=== PATIENT | male | born 1930 | race Asian ===

== ENCOUNTER 2017-08-23 11:15 | Inpatient (IN) | payer OTHER, MEDICAID ==
[~2017-08-23] VITALS: Ht 160 cm; Wt 68.2 kg
[2017-08-23 11:19] VITALS: Ht 160 cm; Wt 68.2 kg
[2017-08-23 11:41] LABS: BASOPHIL % 0.5 % (0-2); PLATELET COUNT 213 x10^3mcL (130-400); RED CELL DISTRIBUTION WIDTH 13.3 % (11.5-14.5)
[2017-08-23 11:51] LABS: CALCIUM 9.1 mg/dL (8.5-10.1); CARBON DIOXIDE 26.6 mmol/L (21-32); CHLORIDE SERUM 100 mmol/L (98-107); CREATININE SERUM 1.2 mg/dL (0.7-1.3); GLUCOSE SERUM 154 mg/dL (74-106); POTASSIUM SERUM 4.5 mmol/L (3.5-5.1); SODIUM SERUM 135 mmol/L (136-145)
[2017-08-23 12:02] LABS: T3 TOTAL 0.86 ng/mL
[2017-08-23 12:31] LABS: FREE T4 1.04 ng/dL (0.76-1.46); FREE THYROXINE INDEX 1.6 ug/dL (1.4-4.5); T4(THYROXINE) 4.8 ug/dL (4.7-13.3)
[2017-08-23 12:36] LABS: ALBUMIN 3.9 g/dL (3.4-5.0); ALKALINE PHOSPHATASE 52 U/L (46-116); ALT/SGPT 42 U/L (16-63); AST/SGOT 31 U/L (15-37); BILIRUBIN TOTAL 0.77 mg/dL (0.20-1.00); CHOLESTEROL 139 mg/dL (<200); CHOLESTEROL/HDL RATIO 2.5; HDL CHOLESTEROL 56 mg/dL (40-60); LIPASE 59 IU/L (73-393); TOTAL PROTEIN, SERUM 7.9 g/dL (6.4-8.2); TRIGLYCERIDES 60 mg/dL (<150)
[2017-08-23] MEDS ORDERED: LOSARTAN POTASS50 M1 PO (13:07)
[2017-08-23] MEDS ORDERED: DOXAZOSIN MESYLA8 MG PO (13:08)
[2017-08-23] MEDS ORDERED: CLOPIDOGREL75 M1 PO (13:08)
[2017-08-23] MEDS ORDERED: FINASTERIDE5 M1 PO (13:08)
[2017-08-23] MEDS ORDERED: PRAVASTATIN SOD20 M1 PO (13:08)
[2017-08-23] MEDS ORDERED: VENTOLIN H0.09 MG/A1 (13:09)
[2017-08-23] MEDS ORDERED: CELECOXIB200 MG PO (13:09)
[2017-08-23] MEDS ORDERED: ALLOPURINOL100 MG PO (13:09)
[2017-08-23] MEDS ORDERED: AZELASTINE HYDRO6 ML (13:10)
[2017-08-23 13:53] VITALS: BP 171/91
[2017-08-23 14:16] LABS: PHOSPHOROUS 4.2 mg/dL (2.5-4.9)
[2017-08-23 16:40] LABS: microscopic required? NO
[2017-08-23 16:55] LABS: UA SPECIFIC GRAVITY <=1.005 (1.005-1.035); urine erythrocyte NEGATIVE (NEGATIVE)
[2017-08-23 17:22] VITALS: BP 141/78
[2017-08-23 21:15] VITALS: BP 150/75
[2017-08-24 05:51] VITALS: BP 142/79
[2017-08-24 06:45] LABS: BASOPHIL % 0.3 % (0-2); PLATELET COUNT 214 x10^3mcL (130-400); RED CELL DISTRIBUTION WIDTH 13.2 % (11.5-14.5)
[2017-08-24 06:49] LABS: CALCIUM 8.6 mg/dL (8.5-10.1); CHLORIDE SERUM 106 mmol/L (98-107); CREATININE SERUM 0.9 mg/dL (0.7-1.3); GLUCOSE SERUM 93 mg/dL (74-106); SODIUM SERUM 137 mmol/L (136-145)
[2017-08-24 08:52] VITALS: BP 127/73
[2017-08-24 14:18] VITALS: BP 149/72
[2017-08-24 18:00] VITALS: BP 175/82
[2017-08-24 19:39] VITALS: BP 153/79
[2017-08-25 04:48] VITALS: BP 149/78
[2017-08-25 06:33] LABS: CALCIUM 8.5 mg/dL (8.5-10.1); CARBON DIOXIDE 24.2 mmol/L (21-32); CHLORIDE SERUM 106 mmol/L (98-107); CREATININE SERUM 0.9 mg/dL (0.7-1.3); GLUCOSE SERUM 89 mg/dL (74-106); POTASSIUM SERUM 4.2 mmol/L (3.5-5.1); SODIUM SERUM 138 mmol/L (136-145)
[2017-08-25 06:36] LABS: BASOPHIL % 0.6 % (0-2); PLATELET COUNT 203 x10^3mcL (130-400); RED CELL DISTRIBUTION WIDTH 13.1 % (11.5-14.5)
[2017-08-25 09:33] VITALS: BP 152/78
[2017-08-25 11:37] VITALS: BP 152/78
== END 2017-08-25 12:25 | disposition home or self-care (01) | DRG 68 ==
LOC: ED 11:15 → DU 13:05
PROVIDERS: Family Medicine; Family Medicine Sports Medicine; Specialist
DX: I65.23 Occlusion and stenosis of bilateral carotid arteries (principal); I16.0 Hypertensive urgency; R55 Syncope and collapse; E86.0 Dehydration; E11.51 Type 2 diabetes mellitus with diabetic peripheral angiopathy without gangrene; N40.0 Benign prostatic hyperplasia without lower urinary tract symptoms; M10.9 Gout, unspecified; E78.5 Hyperlipidemia, unspecified; E03.9 Hypothyroidism, unspecified; Z79.02 Long term (current) use of antithrombotics/antiplatelets; Z68.29 Body mass index [BMI] 29.0-29.9, adult
CPT/HCPCS: 83880; 84439; 97535-GP; J7030; Q0092

== ENCOUNTER 2018-04-02 10:14 | Inpatient (IN) | payer OTHER, MEDICAID ==
[~2018-04-02] VITALS: Ht 167.6 cm; Wt 65.8 kg
[~2018-04-02 10:14] MED LIST: ALLOPURINOL100 MG PO; AZELASTINE HYDRO6 ML; CELECOXIB200 MG PO; CLOPIDOGREL75 M1 PO; DOXAZOSIN MESYLA8 MG PO; FINASTERIDE5 M1 PO; LOSARTAN POTASS50 M1 PO; PRAVASTATIN SOD20 M1 PO; VENTOLIN H0.09 MG/A1
[2018-04-02 10:26] VITALS: Ht 167.6 cm; Wt 65.8 kg
[2018-04-02 10:44] LABS: BASOPHIL % 0.5 % (0-2); PLATELET COUNT 228 x10^3mcL (130-400); RED CELL DISTRIBUTION WIDTH 13.8 % (11.5-14.5)
[2018-04-02 10:57] LABS: CALCIUM 9.2 mg/dL (8.5-10.1); CARBON DIOXIDE 26.6 mmol/L (21-32); CHLORIDE SERUM 99 mmol/L (98-107); CREATININE SERUM 1.1 mg/dL (0.7-1.3); GLUCOSE SERUM 138 mg/dL (74-106); POTASSIUM SERUM 4.4 mmol/L (3.5-5.1); SODIUM SERUM 134 mmol/L (136-145)
[2018-04-02 11:01] LABS: ALBUMIN 3.7 g/dL (3.4-5.0); ALKALINE PHOSPHATASE 51 U/L (46-116); ALT/SGPT 32 U/L (16-63); AST/SGOT 31 U/L (15-37); BILIRUBIN TOTAL 0.77 mg/dL (0.20-1.00); TOTAL PROTEIN, SERUM 8.1 g/dL (6.4-8.2)
[2018-04-02 13:24] LABS: microscopic required? NO
[2018-04-02 13:31] LABS: urine erythrocyte NEGATIVE (NEGATIVE)
[2018-04-02 13:47] LABS: MAGNESIUM 1.9 mg/dL (1.8-2.4); PHOSPHOROUS 3.9 mg/dL (2.5-4.9)
[2018-04-02 13:55] LABS: T3 TOTAL 1.03 ng/mL
[2018-04-02 13:58] VITALS: BP 177/88
[2018-04-02 14:03] LABS: FREE T4 1.06 ng/dL (0.76-1.46); T4(THYROXINE) 5.5 ug/dL (4.7-13.3)
[2018-04-02 17:04] VITALS: BP 130/77
[2018-04-02 21:16] VITALS: BP 148/83
[2018-04-03 04:49] VITALS: BP 123/60
[2018-04-03 06:09] LABS: BASOPHIL % 0.5 % (0-2); PLATELET COUNT 230 x10^3mcL (130-400); RED CELL DISTRIBUTION WIDTH 13.6 % (11.5-14.5)
[2018-04-03 06:15] LABS: CALCIUM 8.9 mg/dL (8.5-10.1); CARBON DIOXIDE 26.7 mmol/L (21-32); CHLORIDE SERUM 102 mmol/L (98-107); GLUCOSE SERUM 109 mg/dL (74-106); POTASSIUM SERUM 3.8 mmol/L (3.5-5.1); SODIUM SERUM 135 mmol/L (136-145)
[2018-04-03 08:42] VITALS: BP 135/60
[2018-04-03 09:42] VITALS: BP 143/73
[2018-04-03 14:23] VITALS: BP 134/78
[2018-04-03 17:23] VITALS: BP 137/72
[2018-04-03 20:31] VITALS: BP 134/70
[2018-04-04 06:05] VITALS: BP 156/70
[2018-04-04 09:27] VITALS: BP 139/69
[2018-04-04 11:38] VITALS: BP 139/69
== END 2018-04-04 13:14 | disposition home or self-care (01) | DRG 73 ==
LOC: ED 10:14 → DU 12:34
PROVIDERS: Emergency Medicine; ADMIT Family Medicine
DX: G90.8 Other disorders of autonomic nervous system (principal); N17.0 Acute kidney failure with tubular necrosis; E87.1 Hypo-osmolality and hyponatremia; I95.1 Orthostatic hypotension; E86.0 Dehydration; D64.9 Anemia, unspecified; I10 Essential (primary) hypertension; E78.5 Hyperlipidemia, unspecified; N40.0 Benign prostatic hyperplasia without lower urinary tract symptoms; Z68.24 Body mass index [BMI] 24.0-24.9, adult
CPT/HCPCS: 83880; 84439; 90658; J1644; J3535; J7030; J7040; Q0092